=== PATIENT | female | born 1940 | race Two or more races ===

== ENCOUNTER 2019-03-02 00:24 | Inpatient (IN) | payer OTHER ==
[2019-03-02] VITALS (75 sets, daily range): BP systolic 62–141; BP diastolic 30–89
[~2019-03-02] VITALS: Ht 157.5 cm; Wt 59.0 kg
--- NOTE | 2019-03-02 00:48 | NUR ---
PT JOVAN FROM [employer] FOR ABD PAIN X2DAYS. AFEBRILE. PT APPEARS UNCOMFORTABLE, VSS, PLACED ON CONTINIOUS MONITORING AND PULSE OX, WILL CONTINUE TO COMITOR. SKIN WARM AND INTACT. FAMILY AT BEDSIDE.
[2019-03-02] MEDS ORDERED: ONDANSETRON HCL/PF 4 MG/2 ML VIAL ONE (00:57)
[2019-03-02] MEDS ORDERED: MORPHINE SULFATE INJ 4 MG/ML DISP.SYRIN ONE (00:57)
[2019-03-02] MEDS ORDERED: MORPHINE SULFATE INJ 2 MG/ML DISP.SYRIN IV ONE (01:00)
[2019-03-02] MEDS ORDERED: ONDANSETRON HCL/PF 4 MG/2 ML VIAL IVP ONE (01:00)
[2019-03-02 01:11] LABS: BASOPHILS # (AUTO) 0.1 /CMM (0.0-0.2); HEMOGLOBIN 9.4 g/dL (11.5-14.8); MEAN CORPUSCULAR HGB CONC 29 g/dl (31.0-36.0)
--- NOTE | 2019-03-02 01:23 | NUR ---
UNABLE TO CATH PT FOR URINE SAMPLE, AWARE
--- NOTE | 2019-03-02 01:24 | NUR ---
PT BROUGHT BY RADIOLOGY TO CT
[2019-03-02 01:28] LABS: ALANINE AMINOTRANSFERASE 14 U/L (12-78); ALBUMIN 2.4 g/dL (3.4-5.0); ALKALINE PHOSPHATASE 333 U/L (46-116); ASPARTATE AMINOTRANSFERASE 22 U/L (15-37); BILIRUBIN,DIRECT 0.6 mg/dL (0.0-0.2); CALCIUM, SERUM 8.4 mg/dL (8.5-10.1); CARBON DIOXIDE 25 mmol/L (21-32); CHLORIDE 103 mmol/L (98-107); CREATININE 5.2 mg/dL (0.6-1.3); GLUCOSE 115 mg/dL (74-106); LIPASE 252 U/L (73-393); SERUM AMMONIA 16 umol/L (11-32); SODIUM SERUM 137 mmol/L (136-145); TOTAL PROTEIN, SERUM 7.7 g/dL (6.4-8.2)
[2019-03-02 01:30] LABS: BASOPHILS % (AUTO) 0.7 % (0.0-2.0); EOSINOPHILS % (AUTO) 0.2 % (0.0-6.0); HEMATOCRIT 32 % (33-45); LYMPHOCYTES # (AUTO) 0.7 /CMM (0.8-4.8); LYMPHOCYTES % (AUTO) 5.6 % (20.0-44.0); MEAN CORPUSCULAR VOLUME 74 fL (82-100); MONOCYTES # (AUTO) 1.1 /CMM (0.1-1.30); NEUTROPHILS # (AUTO) 10.2 /CMM (1.8-8.9); NEUTROPHILS % (AUTO) 84.5 % (43.0-81.0); PLATELET COUNT (AUTO) 316 /CMM (150-450); RED BLOOD CELL COUNT(AUTO) 4.35 MIL/uL (4.0-5.2); WHITE BLOOD COUNT (AUTO) 12.1 K/uL (4.3-11.0)
[2019-03-02 01:33] LABS: POTASSIUM 7.6 mmol/L (3.5-5.1); UREA NITROGEN, BLOOD 107 mg/dL (7-18)
--- NOTE | 2019-03-02 01:44 | NUR ---
EAN (DAUGHTER) [phone], [place] [phone] (GRAND DAUGHTER). CALL DAUGHTER FIRST.
[2019-03-02] MEDS ORDERED: ALBUTEROL FS 2.5 MG/3 ML VIAL.NEB NEB ONE (02:00)
[2019-03-02] MEDS ORDERED: CALCIUM CHLORIDE 1,000 MG/10 ML DISP.SYRIN IV ONE (02:00)
[2019-03-02] MEDS ORDERED: SODIUM BICARBONATE SYR 50 MEQ/50 ML DISP.SYRIN IV ONE (02:00)
[2019-03-02] MEDS ORDERED: DEXTROSE 50%-WATER 50 ML DISP.SYRIN IV ONE (02:00)
[2019-03-02] MEDS ORDERED: SODIUM POLYSTYRENE SULFONATE 15 G/60 ML BOTTLE PO ONE ×3 (02:00→07:00)
[2019-03-02] MEDS ORDERED: INSULIN REGULAR, HUMAN 100 UNIT/ML 10 ML VIAL IV ONE (02:00)
--- NOTE | 2019-03-02 02:11 | NUR ---
REGAL BATTERY INSPECTOR AWARE OF PT. PAGING DR ACUNA FOR ADMISSION,
--- NOTE | 2019-03-02 02:31 | NUR ---
PRINCESS PHILLIP MILLINERY COPYIST: [phone]
[2019-03-02] MEDS ORDERED: ACET325C7 PO (02:54)
[2019-03-02] MEDS ORDERED: ASCO-492 PO (02:55)
[2019-03-02] MEDS ORDERED: ASPI-1169 PO (02:56)
[2019-03-02] MEDS ORDERED: MAGN400O6 PO (02:57)
[2019-03-02] MEDS ORDERED: FOLI1TAB16 PO (03:00)
[2019-03-02] MEDS ORDERED: INSU100V7 SQ (03:00)
[2019-03-02] MEDS ORDERED: FERR325T23 PO (03:00)
[2019-03-02] MEDS ORDERED: SUCR1ORA PO (03:02)
[2019-03-02] MEDS ORDERED: OMEP40CA13 PO (03:02)
[2019-03-02] MEDS ORDERED: SENN-168 PO (03:02)
[2019-03-02] MEDS ORDERED: TRAM50TA2 PO (03:03)
--- NOTE | 2019-03-02 03:30 | NUR ---
Chen quiñonez in EDM - 03/02/19 at 0641 by MARGOTLIPCharo PT DIFFICULT TO AROUSE, UNABLE TO SWALLOW KAYEXELATE. CHRIS CHACON AWARE. WILL ENDORSE TO VINOD RN
--- NOTE | 2019-03-02 03:30 | NUR ---
PT RESTING IN BED. AROUSABLE WITH PAINFUL STIMULI, UNABLE TO SWALLOW AT THIS TIME. UNABLE TO ADMINISTER KAYEXELATE, ER MD AWARE. PT STILL ON CONTINUOUS PULPER TENDER, WILL CONTINUE TO MONITOR.
--- NOTE | 2019-03-02 03:51 | NUR ---
GAVE REPORT TO TIFFANIE CONNORS FOR ROSY
--- NOTE | 2019-03-02 04:05 | NUR ---
Received patient from ER,while patient is being transported to the room by ER nurse ,noted patient with almost agonal breathing ,unresponsive, portable monitor showing NSR, O2 saturation 97 % but patient clearly with agonal breathing with O2 via nasal cannula EQUIPMENT OPERAT0R was called at 0410.Team responded right away.Neo Lizama at bedside Narcan 0.4 mg given and patient responded,woke up a little but still very lethargic.
[2019-03-02] MEDS ORDERED: NALOXONE HCL 0.4 MG/ML AMPUL ONE (04:14)
--- NOTE | 2019-03-02 04:15 | NUR ---
PT TRANSFERRED PER ACLS PROTOCOL
--- NOTE | 2019-03-02 04:25 | NUR ---
Called family, spoke to patient's daughter Marine ,was made aware patient is being transfered to ICU,consent obtained for Dialysis catheter , Neo Lizama further spoke to the daughter on patient's condition and plan of care.
--- NOTE | 2019-03-02 04:30 | NUR ---
Transported patient to ICU .
--- NOTE | 2019-03-02 04:40 | NUR ---
ICU NOTES RECEIVED PT VIA BED AFTER BRADDER PT WAS IN AGONAL RESPIRATIONS,PLACED ON BIPAP 22/5 40%T CONFUSED,RESTLESS.CARLOS SMITH DNP HERE IN UNIT TO INSERT HEMODIALYSIS VIA RT FEMORAL.
--- NOTE | 2019-03-02 04:44 | NUR ---
Rapid response called to rm 114-1, Stat abg taken and critical results noted. Pt transferred to ICU and placed on bipap per Dr Lizama request. Pt placed on noted settings as charted. Alarms are set and audible. Vent plugged into red outlet. Ambu bag bedside. Will continue to monitor. Addendum: 03/02/19 at 0637 by SAVANNAH BAKER RT Amended: Links added.
[2019-03-02] MEDS ORDERED: DEXTROSE 50%-WATER 50 ML DISP.SYRIN IVP ONE (05:00)
[2019-03-02] MEDS ORDERED: IV 1/2NS 1000 ML 1,000 ML IV PRN (05:30)
--- NOTE | 2019-03-02 06:24 | NUR ---
ICU NOTES ABG DONE ORDERED RESULT OF ABG'S CALLED TO CARLOS SMITH.PT INTUBATED W/FR#7 24 AT LIP LINE.FIO2 100%,A/14 TV 450 AND 5CM PEEP.CXR DONE FOR PLACEMENT
[2019-03-02 06:27] LABS: ABG BASE EXCESS -2.4 mmol/L; ABG OXYGEN SATURATION 95.8 % (92.0-98.5); ABG PCO2 77.5 mmHg (35.0-45.0); ABG PH 7.164 (7.350-7.450); ABG PO2 101.6 mmHg (75.0-100.0); AaDO2 94.5 mmHg; COHb 0.8 % (0.5-1.5); MetHb 0.6 % (0.0-1.5); O2Hb 94.5 % (94.0-97.0); PEEP,BG 5 cm H2O; SITE, ABG Right Brachial; VENT MODE, BG bipap
--- NOTE | 2019-03-02 07:20 | NUR ---
SALES UTILITY REPRESENTATIVE NOTE RECEIVED REPORT FROM PM NURSE.PATIENT AGITATED ON ETT 7.5 AND 23 AT LIP LEVEL.ON VENT TOLERATING SETTINGS ORDERED.VSS STABLE.IV ON LAC AND R FEMORAL INTACT AND PATENT.NO SOB NO DISTRESS NOTED.ON B SOFT WRIST RESTRAINT.BED IS LOCKED AND IN LOW POSITION.CALL LIGHT IN REACH.BED ALARM ON .SRX4.WILL CONTINUE TO MONITOR.
--- NOTE | 2019-03-02 07:25 | NUR ---
ICU NOTES REPORT AND CARE OF PT GIVEN TO IAIN CONNORS.
[2019-03-02] MEDS ORDERED: FEE PK DOSING 1 MIN EA MC ONE (07:47)
[2019-03-02] MEDS: PROPOFOL 100 ML IV PRN ×3 (07:49→23:59)
[2019-03-02 07:53] LABS: BASOPHILS # (AUTO) 0.1 /CMM (0.0-0.2); BASOPHILS % (AUTO) 1.2 % (0.0-2.0); EOSINOPHILS % (AUTO) 0.1 % (0.0-6.0); HEMATOCRIT 29 % (33-45); HEMOGLOBIN 8.6 g/dL (11.5-14.8); LYMPHOCYTES # (AUTO) 0.4 /CMM (0.8-4.8); LYMPHOCYTES % (AUTO) 3.7 % (20.0-44.0); MEAN CORPUSCULAR HGB CONC 29 g/dl (31.0-36.0); MEAN CORPUSCULAR VOLUME 73 fL (82-100); MONOCYTES % (AUTO) 9.3 % (2.0-12.0); NEUTROPHILS # (AUTO) 8.8 /CMM (1.8-8.9); NEUTROPHILS % (AUTO) 85.7 % (43.0-81.0); PLATELET COUNT (AUTO) 241 /CMM (150-450); WHITE BLOOD COUNT (AUTO) 10.2 K/uL (4.3-11.0)
[2019-03-02] MEDS ORDERED: IV D5/0.45 NACL 1,000 ML IV ONE (08:00)
[2019-03-02] MEDS ORDERED: PIPERACILLIN /TAZOBACTAM 2.25 G in IV D5W 50 ML IV SCH (08:00)
[2019-03-02 08:07] LABS: SERUM AMMONIA 40 umol/L (11-32)
[2019-03-02 08:11] LABS: CALCIUM, SERUM 8.7 mg/dL (8.5-10.1); CARBON DIOXIDE 24 mmol/L (21-32); CHLORIDE 105 mmol/L (98-107); CREATININE 5.5 mg/dL (0.6-1.3); GLUCOSE 126 mg/dL (74-106); LIPASE 182 U/L (73-393); MAGNESIUM 2.5 mg/dL (1.8-2.4); SODIUM SERUM 142 mmol/L (136-145)
[2019-03-02 08:14] LABS: UREA NITROGEN, BLOOD 106 mg/dL (7-18)
[2019-03-02] MEDS ORDERED: BISA10SU11 RC (08:20)
[2019-03-02] MEDS ORDERED: CHLO473M5 MM (08:20)
[2019-03-02] MEDS ORDERED: INSU100V11 SQ (08:20)
[2019-03-02] MEDS ORDERED: NA P133E RC (08:20)
[2019-03-02] MEDS ORDERED: DOCU-141 PO (08:20)
[2019-03-02] MEDS ORDERED: LACT10SO PO (08:20)
[2019-03-02] MEDS ORDERED: SPIR50TA5 PO (08:20)
[2019-03-02 08:25] LABS: ABG BASE EXCESS -1.3 mmol/L; ABG OXYGEN SATURATION 99.5 % (92.0-98.5); ABG PH 7.396 (7.350-7.450); ABG PO2 371.7 mmHg (75.0-100.0); AaDO2 302.3 mmHg; COHb 0.6 % (0.5-1.5); MetHb 0.6 % (0.0-1.5); O2Hb 98.3 % (94.0-97.0); PEEP,BG 5 cm H2O; SITE, ABG Left Brachial; VT, ABG 450 mL
[2019-03-02] MEDS ORDERED: NOREPINEPHRINE 16 MG in IV D5W 500 ML IV PRN (08:30)
[2019-03-02] MEDS ORDERED: DEXTROSE 50%-WATER 50 ML DISP.SYRIN IV PRN (08:30)
[2019-03-02] MEDS ORDERED: VANCOMYCIN 1 GM in IV D5W 250 ML IV ONE ×4 (09:00)
--- NOTE | 2019-03-02 09:51 | NUR ---
called for pt , nurse stated that pt was going to have dialysis , was advised to check with ordering md, nurse will calll back with instructions
--- NOTE | 2019-03-02 10:00 | NUR ---
VICE PRESIDENT RISK MANAGEMENT NOTE CALL MADE TO DAUGHTER,SPOKE TO HER ON PHONE.GOT VERBAL CONSENT TO DO PARACENTESIS AND PICC LINE AND THORACENTESIS.VERIFIED BY 2 RN.SEEN BY ,UPDATED ABOUT PATIENT CONDITION.GOT NEW ORDERS.SEEN BY ,UPDATED ABOUT PATIENT CONDITION OK TO CHANGE IVF TO D5 1/2 NS@60 CC/HR.HD TODAY.PATIENT BP WAS LOW STARTED ON LEVO.GETTING STABILIZED.WILL CONTINUE TO MONITOR.
[2019-03-02] MEDS ORDERED: ROCURONIUM BROMIDE 50 MG/5 ML IV ONE (10:47)
[2019-03-02] MEDS ORDERED: ETOMIDATE 2 MG/ML VIAL IV ONE (10:47)
--- NOTE | 2019-03-02 11:00 | NUR ---
SUPPORT MERCHANDISER NOTE ABDOMINAL PARACENTESIS DONE BY .3090ML OUT.SEND OUT FOR CYTOLOGY.GIVEN TO LAB WITH CYTOLOGY FORM.
[2019-03-02] MEDS: BLOOD SUGAR DIAGNOSTIC 1 EACH STRIP IN SCH ×3 (12:09→23:58)
[2019-03-02] MEDS: MEROPENEM 500 MG in IV NS 0.9% 50 ML IV SCH ×2 (13:23→21:20)
[2019-03-02 14:56] LABS: CALCIUM, SERUM 7.9 mg/dL (8.5-10.1); CARBON DIOXIDE 30 mmol/L (21-32); CHLORIDE 106 mmol/L (98-107); CREATININE 3.5 mg/dL (0.6-1.3); GLUCOSE 141 mg/dL (74-106); POTASSIUM 4.7 mmol/L (3.5-5.1); SODIUM SERUM 145 mmol/L (136-145); UREA NITROGEN, BLOOD 58 mg/dL (7-18)
--- NOTE | 2019-03-02 17:37 | NUR ---
RT END OF THE SHIFT REPORT, ASSISTED DR. CARLOS SMITH FOR ORALLY INTUBATION 78 Y OLD FEMALE @0652 AM X4 RT'S AT THE BEDSIDE. ETT # 7.5@23LIPLINE. ((( DR. SMITH NOTED PT. HAS A LOSE TOOTH ON TOP RIGHT SITE ))) @0655 PLACED ON VENT WITH NOTED SETTINGS, GOOD COLOR EXCHANGED VIA CAPNOGRAPHY. ETT SECURED AT 23 CM LIP LINE. EQUAL CHEST RISE NOTED B/S BILATERALLY FINE SUX'D FOR SMALL AMT OF WHITE THIN SECRETIONS, (SPUTUM SAMPLE COLLECTED AND SENT TO LAB.) @0830 FIO2 DECREASED TO 50% PER DR. SANTOS ORDER POST ABG TODAY. PT. TOOK TO CT AND BACK TO ROOM 259 HME, PLUSH BRUSHER DONE. PT. VENT PLUGGED INTO RED OUT LET. AMBU BAG AT BEDSIDE. PT. REMAIN STABLE WILL CONTINUE TO MONITOR. REPORT WILL PASS TO PM SHIFT. Addendum: 03/02/19 at 1746 by DUKE MONTOYA RT Amended: Links added.
--- NOTE | 2019-03-02 18:06 | NUR ---
ENVELOPE ADJUSTER NOTE KAYEXALATE NOT ADMINISTERED BECAUSE OF K BACK TO NORMAL AFTER DIALYSIS.
--- NOTE | 2019-03-02 19:19 | NUR ---
SALES CONTRACTS ANALYST CLOSING NOTE PATIENT IN BED. HAS ETT 7.5 AND 23 AT LIP LEVEL.ON VENT TOLERATING SETTINGS ORDERED.VSS STABLE.IV ON LAC AND R FEMORAL INTACT AND PATENT.PICCLINE NURSE AT BEDSIDE FOR PICCLINE INSERTION.ON LEVO AND PROPOFOL.NO SOB NO DISTRESS NOTED.ON B SOFT WRIST RESTRAINT.BED IS LOCKED AND IN LOW POSITION.CALL LIGHT IN REACH.BED ALARM ON .SRX4.FAMILY WAS AT BEDSIDE.ANSWERED ALL QUESTIONS.ENDORSED TO PM NURSE FOR ROSY.
--- NOTE | 2019-03-02 19:35 | NUR ---
BREAD DOUGH MIXER RCD PT W/ DX RENAL FAIL, RESP FAIL. PT SEDATED ON PROPOFOL @ 30 MCG/KG/MIN. CONTROLLED AFIB ON MONITOR. OG TUBE CLAMPED. SKYLA PICC LINE INSERTED BY PICC LINE NURSE. D5 1/2 NS @ 60 ML/HR. SIMV TRIAL IN AM.
[2019-03-02] MEDS ORDERED: LACTULOSE 10 G/15 ML UDC (PYXIS) NG SCH (21:00)
[2019-03-03] VITALS (84 sets, daily range): BP systolic 76–142; BP diastolic 42–81
[2019-03-03 04:50] LABS: BASOPHILS % (AUTO) 0.4 % (0.0-2.0); HEMATOCRIT 28 % (33-45); HEMOGLOBIN 8.4 g/dL (11.5-14.8); LYMPHOCYTES # (AUTO) 0.7 /CMM (0.8-4.8); LYMPHOCYTES % (AUTO) 6.4 % (20.0-44.0); MEAN CORPUSCULAR HGB CONC 30 g/dl (31.0-36.0); MEAN CORPUSCULAR VOLUME 72 fL (82-100); MONOCYTES % (AUTO) 9.8 % (2.0-12.0); NEUTROPHILS # (AUTO) 8.3 /CMM (1.8-8.9); NEUTROPHILS % (AUTO) 81.4 % (43.0-81.0); PLATELET COUNT (AUTO) 177 /CMM (150-450); RED BLOOD CELL COUNT(AUTO) 3.87 MIL/uL (4.0-5.2); WHITE BLOOD COUNT (AUTO) 10.2 K/uL (4.3-11.0)
[2019-03-03 04:57] LABS: ALANINE AMINOTRANSFERASE 9 U/L (12-78); ALBUMIN 1.8 g/dL (3.4-5.0); ALKALINE PHOSPHATASE 248 U/L (46-116); ASPARTATE AMINOTRANSFERASE 16 U/L (15-37); BILIRUBIN,TOTAL 0.8 mg/dL (0.2-1.0); CALCIUM, SERUM 7.5 mg/dL (8.5-10.1); CARBON DIOXIDE 30 mmol/L (21-32); CHLORIDE 103 mmol/L (98-107); GLUCOSE 144 mg/dL (74-106); LIPASE 75 U/L (73-393); POTASSIUM 4.7 mmol/L (3.5-5.1); SODIUM SERUM 140 mmol/L (136-145); TOTAL PROTEIN, SERUM 5.8 g/dL (6.4-8.2); UREA NITROGEN, BLOOD 63 mg/dL (7-18)
[2019-03-03 05:02] LABS: SERUM AMMONIA 49 umol/L (11-32)
[2019-03-03] MEDS: INSULIN REGULAR, HUMAN 100 UNIT/ML 3 ML VIAL SQ PRN ×3 (05:59→17:46)
[2019-03-03] MEDS: PROPOFOL 100 ML IV PRN (06:00)
[2019-03-03] MEDS: BLOOD SUGAR DIAGNOSTIC 1 EACH STRIP IN SCH ×4 (06:15→23:41)
[2019-03-03] MEDS ORDERED: IV D5/0.45 NACL 1,000 ML IV PRN (07:00)
--- NOTE | 2019-03-03 08:00 | NUR ---
ICU/RN: INITIAL NOTES,AM RECEIVED BEDSIDE REPORT FROM NIGHT NURSE. PT SEDATED AND INTUBATED, ETT 7.5 AND 23CM AT THE LIP. HD JUST STARTED. CONTROLLED A.FIB ON TELE. POST HD PT WILL BE PLACED ON SIMV FOR TRIAL. OG TUBE IN PLACE, CLAMPED. RIGHT UPPER ARM PICC LINE PATENT AND INTACT, LEVO INFUSING FOR BP SUPPORT PER PROTOCOL, PT SEDATED WITH 30MCG OF DIPRIVAN, SEDATION VACATION WILL BE DONE. RIGHT FEMORAL HD CATH IN PLACE. ALL NEEDS WILL BE ATTENDED TO, SAFETY MEASURES TAKEN, BED IN LOW POSITION, SIDE RAILS UP, CALL LIGHT WITHIN REACH. WILL CONTINUE CARE. WOUND CONSULT PENDING.
[2019-03-03] MEDS ORDERED: FUROSEMIDE 20 MG/2 ML VIAL IV ONE (08:30)
[2019-03-03] MEDS: LACTULOSE 10 G/15 ML UDC (PYXIS) NG SCH ×3 (08:50→20:33)
[2019-03-03] MEDS: MEROPENEM 500 MG in IV NS 0.9% 50 ML IV SCH ×2 (09:04→20:34)
--- NOTE | 2019-03-03 09:46 | NUR ---
ICU/RN: HD DONE. 1.5LITERS OUT. VSS, CONTINUE ON LEVO FOR BP SUPPORT.
--- NOTE | 2019-03-03 10:00 | NUR ---
ICU/RN: POST HD SEDATION VACATION STARTED. PT WILL BE WEANED TODAY
[2019-03-03] MEDS ORDERED: PROPOFOL 100 ML IV PRN (12:00)
[2019-03-03] MEDS ORDERED: NOREPINEPHRINE 16 MG in IV D5W 500 ML IV PRN (12:00)
--- NOTE | 2019-03-03 13:15 | NUR ---
ICU/RN: PT PLACED ON SIMV 4, PS 15, PEEP 5, TOLERATING WELL, NO DISTRESS.
[2019-03-03 14:22] LABS: ABG BASE EXCESS 4.1 mmol/L; ABG OXYGEN SATURATION 98.4 % (92.0-98.5); ABG PCO2 52.9 mmHg (35.0-45.0); ABG PH 7.374 (7.350-7.450); ABG PO2 149.1 mmHg (75.0-100.0); AaDO2 75.3 mmHg; COHb 0.5 % (0.5-1.5); MetHb 0.6 % (0.0-1.5); O2Hb 97.3 % (94.0-97.0); SITE, ABG Left Radial
--- NOTE | 2019-03-03 14:35 | NUR ---
ICU/RN: PT EXTUBATED. ON 5LITERS NASAL CANULA, NO DISTRESS NOTED. WILL CONTINUE TO MONITOR AND ASSESS.
--- NOTE | 2019-03-03 14:38 | NUR ---
RT PER DR SANTOS PATIENT WAS WEANED ON THE VENTILATOR AND EXTUBATED. PATIENT PLACED ON 5L N/C. WILL CONT TO MONITOR CLOSELY
[2019-03-03] MEDS: VANCOMYCIN 500 MG in IV D5W 100 ML IV PRN (15:18)
[2019-03-03] MEDS: HYDROGEL DRESSING 90 GM TUBE TP SCH (17:04)
[2019-03-03] MEDS: CLOTRIMAZOLE 1% 15 GM TUBE TP SCH (17:05)
[2019-03-03 17:07] LABS: ABG BASE EXCESS 1.9 mmol/L; ABG OXYGEN SATURATION 98.8 % (92.0-98.5); ABG PCO2 45.8 mmHg (35.0-45.0); ABG PH 7.391 (7.350-7.450); ABG PO2 239.3 mmHg (75.0-100.0); AaDO2 22.2 mmHg; COHb 0.1 % (0.5-1.5); MetHb 0.6 % (0.0-1.5); O2Hb 98.1 % (94.0-97.0); SITE, ABG Left Radial; VENT MODE, BG 6L NC
--- NOTE | 2019-03-03 19:00 | NUR ---
RECEIVED PATIENT IN NO ACUTE DISTRESS IN BED. PATIENT IS A/O X 2 AND ABLE TO MAKE HER NEEDS KNOWN. PATIENT IS ON O2 VIA NASAL CANNULA AT 5LPM AND TOLERATING WELL. PATIENT NOT COMPLAINING OF ANY SHORTNESS OF BREATH, DIFFICULTY BREATHING OR PAIN AT THIS TIME. PATIENT IS ON TELEMETRY WITH CONTROLLED AFIB ON THE MONITOR. PATIENT HAS RIGHT UPPER ARM PICC LINE THAT IS CLEAN DRY INTACT AND PATENT WITH SALINE LOCK. PATIENT HAS RIGHT FEMORAL HD CATH THAT IS CLEAN DRY AND INTACT. BED IN LOW LOCK POSITION WITH RAILS UP X 2. CALL LIGHT WITHIN REACH AND ALL SAFETY MEASURES ENSURED AND CARRIED OUT. WILL CONTINUE TO MONITOR PATIENT.
--- NOTE | 2019-03-03 19:39 | NUR ---
ICU/RN: ENDING NOTES,AM BEDSIDE REPORT ENDORSED TO NIGHT NURSE. PT ON 2LITERS 02 VIA NASAL CANULA, NO DISTRESS NOTED, RESTING COMFORTABLY. PT CONTROLLED A. FIB. ANURIC, HD DONE TODAY. ALL NEEDS ATTENDED TO, SAFETY MEASURES TAKEN, BED IN LOW POSITION, SIDE RAILS UP, CALL LIGHT WITHIN REACH. LEFT LEG WOUND DEBRIDEMENT DONE BY PEDIATRIST. POSSIBLE OR PROCEDURE THIS FRIDAY.
--- NOTE | 2019-03-03 21:00 | NUR ---
CONTACTED PATIENT'S DAUGHTER WHO IS MAKING DECISIONS FOR PATIENT AND WAS NOTIFIED THAT THEY WANTED NO CHEST COMPRESSIONS, BUT WANTED ACLS MEDICATIONS, DEFIBRILLATION, AND INTUBATION. CHARGE NURSE TG CONNORS NOTIFIED AND VERIFIED WITH FAMILY 2130- NOTIFIED DR. ACUNA OF PATIENT'S FAMILIES WISHES. RECEIVED ORDERS TO CHANGE PATIENT'S CODE STATUS TO NO CHEST COMPRESSIONS WITH ACLS MEDICATIONS, DEFIBRILLATIONS AND INTUBATION. CO-SIGNED WITH CHARGE NURSE.
[2019-03-04] VITALS (26 sets, daily range): BP systolic 87–118; BP diastolic 50–62
[2019-03-04] MEDS: LACTULOSE 10 G/15 ML UDC (PYXIS) NG SCH ×4 (02:30→20:35)
--- NOTE | 2019-03-04 02:30 | NUR ---
PATIENT REFUSED TO TAKE LACTULOSE MEDICATION. EDUCATED PATIENT ON IMPORTANCE OF TAKING MEDICATION, BUT PATIENT STILL REFUSED.
--- NOTE | 2019-03-04 02:46 | NUR ---
PATIENT REFUSED CLEANING. HAS RECREATION COUNSELOR SPEAK TO PATIENT ABOUT IMPORTANCE OF BEING CLEANED, BUT PATIENT STILL REFUSED TO BE CLEANED. WILL ATTEMPT TO CLEAN PATIENT AT A LATER TIME.
[2019-03-04 04:37] LABS: BASOPHILS % (AUTO) 0.4 % (0.0-2.0); EOSINOPHILS % (AUTO) 0.5 % (0.0-6.0); HEMATOCRIT 27 % (33-45); HEMOGLOBIN 8.1 g/dL (11.5-14.8); LYMPHOCYTES # (AUTO) 0.7 /CMM (0.8-4.8); LYMPHOCYTES % (AUTO) 6.5 % (20.0-44.0); MEAN CORPUSCULAR HGB CONC 30 g/dl (31.0-36.0); MEAN CORPUSCULAR VOLUME 73 fL (82-100); MONOCYTES # (AUTO) 1.2 /CMM (0.1-1.30); MONOCYTES % (AUTO) 11.1 % (2.0-12.0); NEUTROPHILS # (AUTO) 8.7 /CMM (1.8-8.9); NEUTROPHILS % (AUTO) 81.5 % (43.0-81.0); PLATELET COUNT (AUTO) 110 /CMM (150-450); WHITE BLOOD COUNT (AUTO) 10.7 K/uL (4.3-11.0)
[2019-03-04 04:41] LABS: CALCIUM, SERUM 7.5 mg/dL (8.5-10.1); CARBON DIOXIDE 31 mmol/L (21-32); CHLORIDE 106 mmol/L (98-107); CREATININE 3.5 mg/dL (0.6-1.3); GLUCOSE 127 mg/dL (74-106); POTASSIUM 4.7 mmol/L (3.5-5.1); SODIUM SERUM 142 mmol/L (136-145); UREA NITROGEN, BLOOD 44 mg/dL (7-18)
[2019-03-04 05:13] LABS: SERUM AMMONIA 37 umol/L (11-32)
[2019-03-04] MEDS: BLOOD SUGAR DIAGNOSTIC 1 EACH STRIP IN SCH ×4 (05:15→23:36)
[2019-03-04 06:45] LABS: LYMPHOCYTES % (MANUAL) 4 % (16-48); MONOCYTES % (MANUAL) 7 % (0-11.0); NEUTROPHILS % (MANUAL) 86 (42-76)
[2019-03-04 06:46] LABS: BAND % (MANUAL) 3 % (0.0-5.0)
--- NOTE | 2019-03-04 08:00 | NUR ---
ICU/RN INITIAL NOTES,AM RECEIVED BEDSIDE REPORT FROM NIGHT NURSE. PT ALERT, FOLLOWS COMMANDS, SOME CONFUSION NOTED. PT ON NASAL CANULA, 2 LITERS, NO DISTRESS NOTED. CONTROLLED A.FIB ON TELE. PT NPO TILL SWALLOW EVALUATION IS COMPLETE. PT ANURIC. PICC LINE PATENT AND INTACT, NO S/S OF INFECTION OR INFILTRATION NOTED. ALL NEEDS WILL BE ATTENDED TO, SAFETY MEASURES TAKEN, BED IN LOW POSITION, SIDE RAILS UP, CALL LIGHT WITHIN REACH.
--- NOTE | 2019-03-04 08:49 | NUR ---
ICU/RN: RAY REYNOLDS AT BEDSIDE TO ASSESS SACRAL WOUND. ORDERS FOR DEBRIDEMENT RECEIVED. WILL FOLLOW UP.
[2019-03-04] MEDS: CLOTRIMAZOLE 1% 15 GM TUBE TP SCH ×2 (09:03→17:34)
[2019-03-04] MEDS: HYDROGEL DRESSING 90 GM TUBE TP SCH (09:03)
[2019-03-04] MEDS: MEROPENEM 500 MG in IV NS 0.9% 50 ML IV SCH ×2 (09:04→20:36)
--- NOTE | 2019-03-04 10:16 | NUR ---
WOUND CARE CONSULT: PT FOLLOWED BY SURGICAL AND PODIATRY TEAMS. DEFER TO SURGICAL TEAMS FOR WOUND TREATMENT PLAN. RECOMMENDATIONS MADE FOR SKIN PROTECTION. DISCUSSED WITH NURSING STAFF. WILL SEE PRN. CURRENT FORREST SCORE IS 9. KLEBER ISOFLEX LOW AIRLOSS BED IN USE.
[2019-03-04] MEDS ORDERED: Z GUARD REMEDY 2 OZ OINT TP PRN (10:30)
[2019-03-04] MEDS: Z GUARD REMEDY 2 OZ OINT TP SCH (11:01)
[2019-03-04] MEDS ORDERED: ALBUMIN 25% 25 GM in PREMIX 1 EA IV PRN (15:00)
--- NOTE | 2019-03-04 17:20 | NUR ---
ICU/RN: HEMODIALYSIS DONE, 1 LITER OUT. VANCO TROUGH 19, POST HD VANCO WILL BE ADMINISTERED.
[2019-03-04] MEDS: VANCOMYCIN 500 MG in IV D5W 100 ML IV PRN (17:51)
[2019-03-04] MEDS: INSULIN REGULAR, HUMAN 100 UNIT/ML 3 ML VIAL SQ PRN ×2 (18:01→23:42)
--- NOTE | 2019-03-04 19:10 | NUR ---
ICU/RN ENDING NOTES,AM BEDSIDE REPORT ENDORSED TO NIGHT NURSE. PT ALERT, FOLLOWS COMMANDS. PT WEAK. ON NASAL CANULA 2LITERS, NO DISTRESS. CONTROLLED A.FIB ON TELE. PT TURNED AND REPOSITIONED. BED BATH GIVEN, LINENS CHANGED. ALL NEEDS ATTENDED TO, SAFETY MEASURES TAKNE, BED IN LOW POSITION, SIDE RAILS UP, CALL LIGHT WITHIN REACH. WILL CONTINUE CARE
[2019-03-05] VITALS (27 sets, daily range): BP systolic 91–115; BP diastolic 49–65
[2019-03-05] MEDS: LACTULOSE 10 G/15 ML UDC (PYXIS) NG SCH ×2 (02:41→09:47)
[2019-03-05 04:48] LABS: BASOPHILS % (AUTO) 0.2 % (0.0-2.0); EOSINOPHILS % (AUTO) 0.4 % (0.0-6.0); HEMATOCRIT 27 % (33-45); HEMOGLOBIN 7.9 g/dL (11.5-14.8); LYMPHOCYTES # (AUTO) 0.6 /CMM (0.8-4.8); LYMPHOCYTES % (AUTO) 5.5 % (20.0-44.0); MEAN CORPUSCULAR HGB CONC 30 g/dl (31.0-36.0); MEAN CORPUSCULAR VOLUME 74 fL (82-100); MONOCYTES # (AUTO) 1.1 /CMM (0.1-1.30); MONOCYTES % (AUTO) 10.3 % (2.0-12.0); NEUTROPHILS # (AUTO) 8.8 /CMM (1.8-8.9); NEUTROPHILS % (AUTO) 83.6 % (43.0-81.0); PLATELET COUNT (AUTO) 94 /CMM (150-450); RED BLOOD CELL COUNT(AUTO) 3.57 MIL/uL (4.0-5.2); WHITE BLOOD COUNT (AUTO) 10.5 K/uL (4.3-11.0)
[2019-03-05 04:58] LABS: CALCIUM, SERUM 7.7 mg/dL (8.5-10.1); CARBON DIOXIDE 30 mmol/L (21-32); CHLORIDE 106 mmol/L (98-107); CREATININE 3.2 mg/dL (0.6-1.3); GLUCOSE 155 mg/dL (74-106); POTASSIUM 4.5 mmol/L (3.5-5.1); SODIUM SERUM 142 mmol/L (136-145); UREA NITROGEN, BLOOD 33 mg/dL (7-18)
[2019-03-05 05:21] LABS: NEUTROPHILS % (MANUAL) 90 (42-76)
[2019-03-05 05:22] LABS: LYMPHOCYTES % (MANUAL) 5 % (16-48); MONOCYTES % (MANUAL) 5 % (0-11.0)
[2019-03-05] MEDS: BLOOD SUGAR DIAGNOSTIC 1 EACH STRIP IN SCH ×3 (05:28→17:17)
[2019-03-05] MEDS: INSULIN REGULAR, HUMAN 100 UNIT/ML 3 ML VIAL SQ PRN ×3 (05:33→17:26)
--- NOTE | 2019-03-05 07:10 | NUR ---
HORSER UP INITIAL NOTES Rec'd pt awake on bed, not in any distress, A/O x 1-2, Namibian speaking. No SOB while on NC/2lpm. Controlled/uncontrolled Afib on telemonitor. SKYLA PICC line, patent & intact w/ no s/s/sx of infection/infiltration noted. Has R femoral HD Cath in place. Safety precaution in place w/ bed in lowest & locked pos. Call light placed w/in reach. Will cont to monitor & attend pt needs.
--- NOTE | 2019-03-05 08:30 | NUR ---
Pt seen & examined by Dr. Booth, updated about pt condition. Okay to downgrade.
[2019-03-05] MEDS: INSULIN GLARGINE, 100 UNIT/ML CARTRIDGE SQ SCH ×2 (09:00→22:14)
--- NOTE | 2019-03-05 09:00 | NUR ---
Pt seen & examined by Dr. Orozco, updated about pt condition.
[2019-03-05] MEDS: MEROPENEM 500 MG in IV NS 0.9% 50 ML IV SCH ×2 (09:46→21:02)
[2019-03-05] MEDS: Z GUARD REMEDY 2 OZ OINT TP SCH (09:46)
[2019-03-05] MEDS: HYDROGEL DRESSING 90 GM TUBE TP SCH (09:47)
[2019-03-05] MEDS: CLOTRIMAZOLE 1% 15 GM TUBE TP SCH ×2 (09:47→17:17)
[2019-03-05] MEDS: PANTOPRAZOLE 40 MG TABLET.DR PO SCH (09:49)
[2019-03-05] MEDS: FUROSEMIDE 40 MG TABLET PO SCH (09:49)
--- NOTE | 2019-03-05 09:55 | NUR ---
Ammonia 20. Per Dr. Orozco may change Lactulose to 20gm PO TID.
--- NOTE | 2019-03-05 11:15 | NUR ---
Sacral Debridement done by Heaven BELL. Pt tolerated well.
[2019-03-05] MEDS: LACTULOSE 10 G/15 ML UDC (PYXIS) PO SCH ×2 (12:25→17:21)
[2019-03-05] MEDS: SUCRALFATE 1 G TABLET PO SCH ×3 (12:25→22:13)
--- NOTE | 2019-03-05 16:30 | NUR ---
MYSQL DEVELOPERACTIVATED SLUDGE ATTENDANT NOTES: Pt transferred to Tele 310/2 as ordered. Report given to Meliza CONNORS. Pt remains A/O x 2, not in any distress. Afib on telemonitor. SKYLA PICC line kept patent & intact w/ CDI dressing, no s/sx of infection/infiltration noted. HD Cath in place w/ CDI dressing. Wound care done prior to transfer. All belongings sent w/ pt including medications. Safety precautions kept in place. Family at bedside during transfer, aware of the room. No concerns/issues identified during transfer. Endorsed to RN for ROSY.
--- NOTE | 2019-03-05 16:35 | NUR ---
RN NOTES PT ARRIVED ONTO THE UNIT VIA HOSPITAL BED. VITALS STABLE. PT TELE MONITORED WITH AFIB
[2019-03-05] MEDS: LACTOBACILLUS RHAMNOSUS GG 1 EACH CAP.SPRINK PO SCH (17:21)
--- NOTE | 2019-03-05 18:36 | NUR ---
RN CLOSING NOTES PT AWAKE AND RESTING IN BED. PRIMARILY [place] SPEAKER. NO APPARENT S/S OF PAIN, DISTRESS OR SOB AT THIS TIME. PT WAS TRANSFERRED FROM ICU. PT EXTUBATED 03/03. PT S/P SACRAL WOUND DEBRIDEMENT TODAY. PT HAS RIGHT UPPER ARM PICC LINE AND RIGHT FEMORAL PERMACATH. PT ON 2L NASAL CANNULA. SAFETY PRECAUTIONS IN PLACE, BED IN LOWEST LOCKED POSITION, X2 SIDE RAILS UP AND CALL LIGHT WITHIN REACH. WILL ENDORSE TO PAIL TESTER NURSE FOR CONTINUITY OF CARE.
--- NOTE | 2019-03-05 19:10 | NUR ---
MARKETING SUPPORT MANAGER NOTES Received patient A/O x2, awake, on La's position on bed with O2 inhalation via NC, saturating well, no SOB/respiratory distress noted. On tele monitor with controlled A-fib noted. Patient denies any pain/discomfort at this time. Kept on bed clean, dry and comfortable. On fall precautions, call light within easy reach. Will continue to monitor accordingly.
[2019-03-06] VITALS: BP 114/77
[2019-03-06] MEDS: BLOOD SUGAR DIAGNOSTIC 1 EACH STRIP IN SCH ×5 (00:06→23:50)
[2019-03-06 04:00] VITALS: BP_SYST 117; BP_DIAS 52; BP_DIAS 57
[2019-03-06] MEDS: INSULIN REGULAR, HUMAN 100 UNIT/ML 3 ML VIAL SQ PRN ×4 (05:52→23:53)
--- NOTE | 2019-03-06 06:37 | NUR ---
ADMINISTRATIVE ASSISTANT CLOSING NOTES Patient asleep, easily awaken, on La's position on bed. On O2 inhalation via NC at 3LPM, no SOB/respiratory distress noted. On tele monitor with controlled A-Fib noted. Constantly reminded patient to keep on O2 to keep SpO2>92%, patient needs reinforcement. All due meds given as ordered, no ASE noted. Wound dressing done as ordered. All nursing needs attended. Repositioned patient q2h accordingly. SCD on R lower leg. Monitored the patient routinely and PRN. On aspiration precautions. Encouraged patient to increase VALERIE, noted very poor intake <25%. Kept on bed clean, dry and comfortable. Perineal care done routinely and PRN. On fall precautions, call light within easy reach. Endorsed to the next shift.
[2019-03-06 06:44] LABS: BASOPHILS % (AUTO) 0.2 % (0.0-2.0); EOSINOPHILS % (AUTO) 0.5 % (0.0-6.0); HEMATOCRIT 27 % (33-45); HEMOGLOBIN 7.8 g/dL (11.5-14.8); LYMPHOCYTES # (AUTO) 0.6 /CMM (0.8-4.8); MEAN CORPUSCULAR HGB CONC 29 g/dl (31.0-36.0); MEAN CORPUSCULAR VOLUME 74 fL (82-100); MONOCYTES # (AUTO) 1.4 /CMM (0.1-1.30); MONOCYTES % (AUTO) 12.1 % (2.0-12.0); NEUTROPHILS # (AUTO) 9.5 /CMM (1.8-8.9); NEUTROPHILS % (AUTO) 82.2 % (43.0-81.0); PLATELET COUNT (AUTO) 98 /CMM (150-450); RED BLOOD CELL COUNT(AUTO) 3.58 MIL/uL (4.0-5.2); WHITE BLOOD COUNT (AUTO) 11.6 K/uL (4.3-11.0)
--- NOTE | 2019-03-06 06:46 | NUR ---
ADDENDUM: HD RN AT BEDSIDE FOR PATIENT'S HD.
[2019-03-06 06:50] LABS: CALCIUM, SERUM 7.8 mg/dL (8.5-10.1); CARBON DIOXIDE 28 mmol/L (21-32); CHLORIDE 105 mmol/L (98-107); GLUCOSE 154 mg/dL (74-106); SODIUM SERUM 140 mmol/L (136-145); UREA NITROGEN, BLOOD 38 mg/dL (7-18)
[2019-03-06 07:05] LABS: SERUM AMMONIA 28 umol/L (11-32)
--- NOTE | 2019-03-06 07:30 | NUR ---
MS RN OPENING NOTES RECEIVED PT SITTING UPRIGHT IN BED. PT IS A/O X2, AFEBRILE. RESPIRATIONS ARE EVEN AND UNLABORED, NOT IN ANY ACUTE DISTRESS NOTED. PT IS CURRENTLY RECEIVING DIALYSIS AT THIS TIME, TOLERATING WELL. DENIES ANY PAIN, SOB, N/V. NO S/SX OF HYPO/HYPERGLYCEMIA NOTED. PICC LINE NOTED TO SKYLA INTACT, NO INFILTRATION NOTED. DRESSING KEPT CLEAN AND DRY. SAFETY MEASURES ARE IN PLACE. INSTRUCTED PT TO USE CALL LIGHT WHEN ASSISTANCE IS NEEDED, CALL LIGHT IS LEFT WITHIN REACH. WILL MONITOR THROUGHOUT SHIFT FOR CONTINUITY OF CARE.
[2019-03-06 08:00] VITALS: BP 97/46
[2019-03-06] MEDS: PANTOPRAZOLE 40 MG TABLET.DR PO SCH (09:05)
[2019-03-06] MEDS: FUROSEMIDE 40 MG TABLET PO SCH (09:05)
[2019-03-06] MEDS: SUCRALFATE 1 G TABLET PO SCH ×4 (09:05→21:27)
[2019-03-06] MEDS: LACTULOSE 10 G/15 ML UDC (PYXIS) PO SCH ×2 (09:05→16:32)
[2019-03-06] MEDS: LACTOBACILLUS RHAMNOSUS GG 1 EACH CAP.SPRINK PO SCH ×2 (09:05→16:32)
[2019-03-06] MEDS: Z GUARD REMEDY 2 OZ OINT TP SCH (09:06)
[2019-03-06] MEDS: CLOTRIMAZOLE 1% 15 GM TUBE TP SCH ×2 (09:06→16:40)
[2019-03-06] MEDS: DAKINS QUARTER STRENGTH (0.125%) 480 ML BOTTLE TOP SCH (09:07)
[2019-03-06] MEDS: HYDROGEL DRESSING 90 GM TUBE TP SCH (09:07)
[2019-03-06] MEDS: MEROPENEM 500 MG in IV NS 0.9% 50 ML IV SCH ×2 (09:10→20:50)
--- NOTE | 2019-03-06 09:45 | NUR ---
MS RN NOTES-- PT WAS SEEN AND EXAMINED BY DR. KALPANA Landrum/ ORDERS TO CHANGE LACTULOSE TO BID, NOTIFY VASCULAR SURGEON FOR PERMA CATH TO CHEST WALL. CHARGE NURSE MADE AWARE.
[2019-03-06] MEDS ORDERED: LACTULOSE 10 G/15 ML UDC (PYXIS) PO SCH (10:00)
[2019-03-06] MEDS ORDERED: NEPRO VAN 237 ML CAN PO PRN (13:30)
--- NOTE | 2019-03-06 13:34 | NUR ---
MS RN NOTES-- PT ABLE TO MAKE NEEDS KNOWN. NEEDS MET AND RENDERED. PT DOES NOT APPEAR TO BE IN ANY ACUTE DISTRESS NOTED. WILL CONTINUE TO MONITOR.
[2019-03-06 16:00] VITALS: BP 102/58
--- NOTE | 2019-03-06 18:28 | NUR ---
MS RN CLOSING NOTES ALL DUE MEDS GIVEN, NEEDS MET AND RENDERED. PT REMAINS A/O X2, AFEBRILE. DTR AT BEDSIDE. RESPIRATIONS ARE EVEN AND UNLABORED, NOT IN ANY ACUTE DISTRESS NOTED. NO FACIAL GRIMACING OR MOANING NOTED. PICC LINE TO SKYLA INTACT, NO INFILTRATION NOTED. DRESSING KEPT CLEAN AND DRY. SAFETY MEASURE ARE IN PLACE. REMINDED PT TO USE CALL LIGHT WHEN ASSISTANCE IS NEEDED, CALL LIGHT IS LEFT WITHIN REACH. WILL ENDORSE TO NEXT SHIFT FOR CONTINUITY OF CARE.
--- NOTE | 2019-03-06 19:40 | NUR ---
MS RN OPENING NOTES RECEIVED PATIENT FROM MORNING SHIFT, ALERT AND ORIENTED X 2 SOUTH KOREAN SPEAKING. AFEBRILE WITH NO S/S OF DISTRESS OBSERVED. BREATHING REGULAR AND UNLABORED ON OXYGEN AT 2L/MIN VIA NASAL CANNULA. RIGHT UPPER ARM PICC LINE INTACT AND PATENT, FLUSHING WITH NO BLEEDING AND S/S OF INFECTION NOTED. SEEN WITH MULTIPLE WOUNDS, DRESSING CLEAN AND INTACT. NO COMPLAINTS OF PAIN/DISCOMFORT REPORTED OF THE TIME. BED LOW AND LOCKED ON SEMI FOWLERS POSITION. CALL LIGHT IN REACH. WILL CONTINUE TO MONITOR.
[2019-03-06 20:00] VITALS: BP 103/56
[2019-03-06] MEDS: INSULIN GLARGINE, 100 UNIT/ML CARTRIDGE SQ SCH (21:34)
--- NOTE | 2019-03-07 00:05 | NUR ---
MS RN NOTES BLOOD SUGAR OF 132mg/dl, 2units GIVEN SQ. MONITORED FOR S/S OF HYPO/HYPERGLYCEMIA.
[2019-03-07 06:13] LABS: BASOPHILS % (AUTO) 0.2 % (0.0-2.0); EOSINOPHILS % (AUTO) 1.5 % (0.0-6.0); HEMATOCRIT 27 % (33-45); HEMOGLOBIN 7.9 g/dL (11.5-14.8); LYMPHOCYTES # (AUTO) 0.6 /CMM (0.8-4.8); LYMPHOCYTES % (AUTO) 6.2 % (20.0-44.0); MEAN CORPUSCULAR HGB CONC 29 g/dl (31.0-36.0); MEAN CORPUSCULAR VOLUME 75 fL (82-100); MONOCYTES # (AUTO) 1.6 /CMM (0.1-1.30); MONOCYTES % (AUTO) 15.7 % (2.0-12.0); NEUTROPHILS # (AUTO) 7.7 /CMM (1.8-8.9); NEUTROPHILS % (AUTO) 76.4 % (43.0-81.0); PLATELET COUNT (AUTO) 86 /CMM (150-450); RED BLOOD CELL COUNT(AUTO) 3.61 MIL/uL (4.0-5.2); WHITE BLOOD COUNT (AUTO) 10.1 K/uL (4.3-11.0)
[2019-03-07] MEDS: BLOOD SUGAR DIAGNOSTIC 1 EACH STRIP IN SCH ×3 (06:27→18:09)
--- NOTE | 2019-03-07 06:30 | NUR ---
MS RN NOTES BLOOD SUGAR OF 85mg/dl, NO INSULIN COVERAGE NEEDED. MONITORED FOR S/S OF HYPO/HYPERGLYCEMIA.
[2019-03-07 06:32] LABS: SERUM AMMONIA 10 umol/L (11-32)
[2019-03-07 06:33] LABS: CALCIUM, SERUM 7.8 mg/dL (8.5-10.1); CARBON DIOXIDE 29 mmol/L (21-32); CHLORIDE 106 mmol/L (98-107); CREATININE 3.7 mg/dL (0.6-1.3); GLUCOSE 96 mg/dL (74-106); SODIUM SERUM 142 mmol/L (136-145); UREA NITROGEN, BLOOD 32 mg/dL (7-18)
--- NOTE | 2019-03-07 06:43 | NUR ---
MS RN CLOSING NOTES PATIENT IN BED ALERT AND ORIENTED X 2 INDONESIAN SPEAKING. AFEBRILE WITH NO S/S OF DISTRESS OBSERVED. BREATHING REGULAR AND UNLABORED ON OXYGEN AT 2L/MIN VIA NASAL CANNULA. RIGHT UPPER ARM PICC LINE INTACT AND PATENT FLUSHING WELL WITH NO BLEEDING AND S/S OF INFECTION NOTED. ASSISTED ON FEEDING, CONSUMED 10-15% OF FOOD/FLUIDS OFFERED, NO EPISODE OF NAUSEA/VOMITING OBSERVED. WOUND TREATMENTS PROVIDED. BED LOW AND LOCKED ON SEMI FOWLERS POSITION. CALL LIGHT IN REACH. WILL ENDORSE TO MORNING SHIFT FOR ROSY.
[2019-03-07 07:07] LABS: BAND % (MANUAL) 4 % (0.0-5.0); EOSINOPHILS % (MANUAL) 1 % (0-4); LYMPHOCYTES % (MANUAL) 2 % (16-48); MONOCYTES % (MANUAL) 8 % (0-11.0); NEUTROPHILS % (MANUAL) 85 (42-76)
[2019-03-07 08:00] VITALS: BP 101/57
[2019-03-07] MEDS: PANTOPRAZOLE 40 MG TABLET.DR PO SCH (08:33)
[2019-03-07] MEDS: LACTOBACILLUS RHAMNOSUS GG 1 EACH CAP.SPRINK PO SCH ×2 (08:33→18:08)
[2019-03-07] MEDS: MEROPENEM 500 MG in IV NS 0.9% 50 ML IV SCH ×2 (08:33→20:35)
[2019-03-07] MEDS: SUCRALFATE 1 G TABLET PO SCH ×4 (08:34→22:39)
[2019-03-07] MEDS: DAKINS QUARTER STRENGTH (0.125%) 480 ML BOTTLE TOP SCH (08:34)
[2019-03-07] MEDS: FUROSEMIDE 40 MG TABLET PO SCH (08:34)
[2019-03-07] MEDS: LACTULOSE 10 G/15 ML UDC (PYXIS) PO SCH ×2 (08:34→18:08)
[2019-03-07] MEDS: CLOTRIMAZOLE 1% 15 GM TUBE TP SCH ×2 (08:37→17:00)
[2019-03-07] MEDS: Z GUARD REMEDY 2 OZ OINT TP SCH (08:38)
[2019-03-07] MEDS: HYDROGEL DRESSING 90 GM TUBE TP SCH (08:38)
--- NOTE | 2019-03-07 12:35 | NUR ---
WOUND CULTURE (L LEG) POSITIVE FOR VRE. DR. ACUNA NOTIFIED
[2019-03-07 16:00] VITALS: BP 113/68
--- NOTE | 2019-03-07 17:10 | NUR ---
per patient NPO status after midnight for PermaCath placement.
--- NOTE | 2019-03-07 18:00 | NUR ---
consent sighed by patient's daughter.
--- NOTE | 2019-03-07 19:20 | NUR ---
RN INITIAL NOTES: RECEIVED REPORT FROM ZEN CONNORS. PT IN BED, MET WITH PT'S GRAND DAUGHTER AT BED SIDE. PT ON 2L OXYGEN, NOTED TO BE MOUTH BREATHER. PT NOTED TO BE TACHYPNEIC, RR 22, PER DAUGHTER PT ATE ABOUT 25% OF MEAL, AND SHE'S TRYING TO HAVE HER DRINK THE MEDICATION BUT PT REFUSED TO FINISH THE ENTIRE MEDICATION. PT ON PUREED DIET, ASPIRATION PROTOCOL INITIATED. PT HAS SKYLA PICC LINE TLC, ALL PORTS PATENT AND FLUSHING WELL, WITH GOOD BLOOD RETURN NOTED. PT S/P PARACENTESIS ON 03/02, AND HD ON 03/06. NOTED RIGHT FEMORAL TEMP HD CATH IN PLACED WITH DRESSING C/D/I, NO ACTIVE BLEEDING NOTED. S/P SACRAL DEBRIDEMENT 03/05. BLE OFFLOADED ON PILLOWS. DISCUSSED WITH GRAND DAUGHTER ABOUT PLAN OF CARE TONIGHT AND PROCEDURES IN AM. PT FOR PERMACATH PLACEMENT, ALL CONSENT SECURED BY TERESA RN. SAFETY PRECAUTIONS FOR FALL INITIATED, CALL LIGHT IN REACH, PPE UTILIZED PT ON ISOLATION VRE WOUND LLE. WILL CONTINUE MONITORING PT.
--- NOTE | 2019-03-07 19:41 | NUR ---
PATIENT IN BED ALERT AND ORIENTED X 2 NEPALESE SPEAKING. AFEBRILE WITH NO S/S OF DISTRESS OBSERVED. BREATHING REGULAR AND UNLABORED ON OXYGEN AT 5L/MIN VIA NASAL CANNULA. RIGHT UPPER ARM PICC LINE INTACT AND PATENT FLUSHING WELL. WOUND TREATMENTS PROVIDED ORDERED . BED LOW AND LOCKED ON SEMI FOWLERS POSITION. CALL LIGHT IN REACH.NPO STATUS AFTER MIDNIGHT. WILL ENDORSE TO NEXT SHIFT FOR ROSY.
[2019-03-07 20:00] VITALS: BP 96/32
--- NOTE | 2019-03-07 20:55 | NUR ---
RN NOTES: PLACED ON CONTINUOS PULSE OX, NOTED SPO2 DROPPING TO 84%, PT MOUTH BREATHER, ON 2L OXYGEN, INCREASED TO 4.5L, SPO2 WENT UP TO 88%, PT AROUSABLE, STAT ABG ORDERED, RT AT BEDSIDE FOR BLOOD DRAW.
--- NOTE | 2019-03-07 20:58 | NUR ---
BLOOD GLUCOSE 162: BLOOD GLUCOSE CHECK PERFORMED AND RESULT OBTAINED IS 162
--- NOTE | 2019-03-07 21:29 | NUR ---
RN NOTES: UNABLE TO DRAW FOR ABG, RT LIGIA TRIED 4X, UNSUCCESSFUL. PT MORE AWAKE, SPO2 98% ON 5L, HR 118, RR 22, NOTIFIED SINTERING PRESS OPERATOR MARITA
--- NOTE | 2019-03-07 21:30 | NUR ---
rn notes: pt kept removing her oxygen and she desat to low 80's, tried putting back oxygen/nasal cannula but pt kept removing it as soon as staff leave the room.
[2019-03-07 21:36] VITALS: BP 111/59
--- NOTE | 2019-03-07 21:49 | NUR ---
rn notes: contacted dr godinez's office exchange at [phone],awaiting for call back
[2019-03-07] MEDS: INSULIN GLARGINE, 100 UNIT/ML CARTRIDGE SQ SCH ×2 (22:00→22:40)
--- NOTE | 2019-03-07 22:11 | NUR ---
rn notes: received call from dr godinez, informed md regarding pt's behavior, kept taking off oxygen, and desat low 80's. re-education provided multiple times but unsuccessful, even involved pt's daughter tamir to help with translation as pt is iraqi speaking only. per md order, place bilateral soft wrist restraint". also informed about pt poor oral intake, 25%, latest blood sugar 162, per md okay to give lantus for tonight. t/o read back, verified and carried out.
--- NOTE | 2019-03-07 22:49 | NUR ---
rn notes: family at bed side, explain about the medication , family/tamir refused for insulin stated her mother is not eating well and would like to refused for insulin tonight. also explain to family about the restraint as pt kept removing nasal cannula and desat to low 80's. per family , they are refusing for restraint. education provided. tamir spoke with her mom and explain the need for keeping oxygen. pt understand and agree.
--- NOTE | 2019-03-07 23:00 | NUR ---
RN NOTES: UNABLE TO APPLY RESTRAINT FAMILY REFUSED, STATED SHE WILL SPEAK WITH THE PT ABOUT THE IMPORTANCE ABOUT KEEPING OXYGEN. STATED SHE WILL STAY WITH THE PT FOR THE MEAN TIME, WILL MONITOR PT'S BEHAVIOR.
[2019-03-08] VITALS (8 sets, daily range): BP systolic 96–147; BP diastolic 52–84
[2019-03-08] MEDS: INSULIN REGULAR, HUMAN 100 UNIT/ML 3 ML VIAL SQ PRN (00:07)
[2019-03-08] MEDS: BLOOD SUGAR DIAGNOSTIC 1 EACH STRIP IN SCH ×5 (00:07→23:59)
--- NOTE | 2019-03-08 00:45 | NUR ---
RN NOTES: PT ABLE TO CONTRACT FOR SAFETY,NOT PULLING OR REMOVING NASAL CANNULA, SPO2 97% ON 5L, PT SLEEPING AT THIS TIME. PER CLINICAL JUDGMENT, RESTRAINT MAY BE DC. NOTIFIED EMY CHACON PER .
--- NOTE | 2019-03-08 02:01 | NUR ---
RN NOTES: PAGED MD REGARDING PT'S BEHAVIOR, PT REMOVING OXYGEN AGAIN AND PULSE OXIMETRY, SPO2 SHOWING 88%, PT HITTING STAFF, NOTIFIED MD HYDRAULIC PRESS OPERATOR DR ACUNA, PER PUT PT IN SOFT BILATERAL WRIST RESTRAINT. ORDER VERIFIED AND CARRIED OUT.
--- NOTE | 2019-03-08 02:10 | NUR ---
RN NOTES: RESTRAINT PROTOCOL INITIATED, PT ABLE TO MOVE AND WIGGLE ARMS AND HANDS, RADIAL PULSE PALPABLE AND INTACT, WITH GOOD CAPILLARY REFILL NOTED, WILL CONTINUE MONITORING PT.
--- NOTE | 2019-03-08 02:22 | NUR ---
RN NOTES: NOTIFIED MARINE, PT'S FAMILY ABOUT PT'S BEHAVIOR, AGREE WITH RESTRAINT
[2019-03-08 06:17] LABS: BASOPHILS % (AUTO) 0.2 % (0.0-2.0); EOSINOPHILS % (AUTO) 0.8 % (0.0-6.0); HEMATOCRIT 26 % (33-45); HEMOGLOBIN 7.8 g/dL (11.5-14.8); LYMPHOCYTES # (AUTO) 0.5 /CMM (0.8-4.8); LYMPHOCYTES % (AUTO) 4.9 % (20.0-44.0); MEAN CORPUSCULAR HGB CONC 30 g/dl (31.0-36.0); MEAN CORPUSCULAR VOLUME 74 fL (82-100); MONOCYTES # (AUTO) 1.3 /CMM (0.1-1.30); MONOCYTES % (AUTO) 13.6 % (2.0-12.0); NEUTROPHILS # (AUTO) 7.5 /CMM (1.8-8.9); NEUTROPHILS % (AUTO) 80.5 % (43.0-81.0); PLATELET COUNT (AUTO) 104 /CMM (150-450); RED BLOOD CELL COUNT(AUTO) 3.55 MIL/uL (4.0-5.2); WHITE BLOOD COUNT (AUTO) 9.3 K/uL (4.3-11.0)
[2019-03-08 06:41] LABS: CALCIUM, SERUM 7.8 mg/dL (8.5-10.1); CARBON DIOXIDE 27 mmol/L (21-32); CHLORIDE 105 mmol/L (98-107); CREATININE 4.5 mg/dL (0.6-1.3); GLUCOSE 142 mg/dL (74-106); PHOSPHORUS 5.5 mg/dL (2.5-4.9); POTASSIUM 5.2 mmol/L (3.5-5.1); SODIUM SERUM 140 mmol/L (136-145); UREA NITROGEN, BLOOD 39 mg/dL (7-18)
--- NOTE | 2019-03-08 06:42 | NUR ---
rn notes: pt remains on 5l oxygen via nc, remain to be mouth breather, on continuous pulse ox, spo2 98%, hr 100. Bilateral soft wrist restraint remains in placed, restraint protocol followed, pt able to move and wiggle arms, with good capillary refill noted, radial pulses intact and palpable, no s/s of impediment in circulation noted. Pt on npo, for permacath placement at 1300, consent and checklist ready. Ble kept offloaded on pillows. Lilliana picc line remains in placed, patent and flushing well, on h;. vs remains stable, needs attended. Safety precautions for fall remains engaged, call light in reach, will endorse to day rn for continuity of care.
[2019-03-08] MEDS: SUCRALFATE 1 G TABLET PO SCH ×4 (07:30→21:33)
[2019-03-08] MEDS: PANTOPRAZOLE 40 MG TABLET.DR PO SCH (07:30)
--- NOTE | 2019-03-08 07:47 | NUR ---
MS RN OPENING NOTE PATIENT RECEIVED A/O X1. RESTRAINTS RELEASED AT THIS TIME PATIENT IS SLEEPING AND NOT REMOVING OXYGEN. ALL DRESSINGS DRY AND INTACT. BOTH HEELS ELEVATED ON PILLOWS TO PREVENT FURTHER SKIN BREAKDOWN. SCD ON RIGHT LEG ONLY DUE TO DRESSING ON LEFT LOWER LEG. NPO AT THIS TIME FOR SURGERY AT [address] SEAMAN FOR PERM CATH PLACEMENT. BED IN LOWEST SETTING. SIDE RAILS X3 IN UPRIGHT POSITION. CALL LIGHT WITHIN REACH. WILL CONTINUE TO MONITOR TO ENSURE SAFETY.
[2019-03-08] MEDS: LACTOBACILLUS RHAMNOSUS GG 1 EACH CAP.SPRINK PO SCH ×2 (09:00→16:50)
[2019-03-08] MEDS: FUROSEMIDE 40 MG TABLET PO SCH (09:00)
[2019-03-08] MEDS: CLOTRIMAZOLE 1% 15 GM TUBE TP SCH ×2 (09:00→16:52)
[2019-03-08] MEDS: LACTULOSE 10 G/15 ML UDC (PYXIS) PO SCH ×2 (09:00→16:50)
[2019-03-08] MEDS: MEROPENEM 500 MG in IV NS 0.9% 50 ML IV SCH ×2 (09:09→20:58)
[2019-03-08] MEDS: HYDROGEL DRESSING 90 GM TUBE TP SCH (09:10)
[2019-03-08] MEDS: DAKINS QUARTER STRENGTH (0.125%) 480 ML BOTTLE TOP SCH (09:10)
[2019-03-08] MEDS: Z GUARD REMEDY 2 OZ OINT TP SCH (09:10)
--- NOTE | 2019-03-08 09:34 | NUR ---
MS/RN Medications held Oral medications held due to patient being NPO for surgery later this afternoon.
[2019-03-08] MEDS ORDERED: FENTANYL PF 100MCG/2ML AMPUL ONE (09:54)
[2019-03-08] MEDS ORDERED: LEVO750T21 PO (11:07)
[2019-03-08] MEDS ORDERED: SULF1TAB48 PO (11:10)
[2019-03-08] MEDS ORDERED: CARV3.12 PO (12:36)
[2019-03-08] MEDS ORDERED: FAMOTIDINE/PF INJ 20 MG/2 ML VIAL IV ONE (12:45)
--- NOTE | 2019-03-08 12:51 | NUR ---
MS CONNORS BLOOD SUGAR BLOOD SUGAR AT NOON 108. PER HOSPITAL PROTOCOL, NO COVERAGE AT THIS TIME.
[2019-03-08] MEDS ORDERED: LIDOCAINE HCL/MPF 1% 30 ML VIAL IJ ONE (14:02)
[2019-03-08] MEDS ORDERED: HEPARIN SODIUM, PORCINE 1,000 UNIT/ML VIAL ONE (14:02)
--- NOTE | 2019-03-08 14:31 | NUR ---
MS RN OR PATIENT TAKEN TO OR IN STABLE CONDITION. MEDICAL RECORD TAKEN WITH PATIENT. DAUGHTER REQUESTING TO SPEAK WITH ANESTHESIA ESCORTED TO OR.
--- NOTE | 2019-03-08 16:47 | NUR ---
RN BACK FROM OR PATIENT RECEIVED BACK FROM OR S/P PERM CATH INSERTION. INSERTION SITE CLEAN AND DRY. DRESSING REMAINS DRY AND INTACT. VITAL SIGNS TAKEN PER HOSPITAL PROTOCOL. NO SIGNS OF RESPIRATORY DISTRESS, PAIN OR DISCOMFORT. FEMORAL LINE TO RIGHT GROIN REMOVED DURING SURGERY. PRESSURE DRESSING DRY AND INTACT. WILL CONTINUE TO MONITOR.
--- NOTE | 2019-03-08 16:52 | NUR ---
MS RN MEDICATIONS HELD PATIENT TOO LETHARGIC FOLLOWING ANESTHESIA TO RECEIVE 5PM MEDICATIONS.
--- NOTE | 2019-03-08 18:37 | NUR ---
MS RN CLOSING NOTES ALL MEDS HELD DUE TO PATIENT LETHARGIC AFTER PERMACATH PROCEDURE. PATIENT REMAINS A/OX1. RESPIRATIONS ARE EVEN AND UNLABORED, NO SIGNS OF RESPIRATORY DISTRESS. PICC LINE ON RIGHT UPPER ARM HEP LOCK, INTACT, NO INFILTRATION NOTED. DRESSING ON LEFT LOWER LEG CLEAN AND DRY. PATIENT CURRENTLY ON HEMODIALYSIS STARTED AT 1810. VITAL SIGNS STABLE. BED IS IN LOWEST POSITION. SIDE RAILS X2 HEAD UPRIGHT. CALL LIGHT WITHIN REACH. WILL ENDORSE TO NEXT SHIFT FOR CONTINUITY OF CARE.
--- NOTE | 2019-03-08 19:40 | NUR ---
MS RN OPENING NOTES RECEIVED PATIENT FROM MORNING SHIFT, ALERT AND ORIENTED X1 HUNGARIAN SPEAKING. APPEARS PALE AND WEAK. BREATHING REGULAR AND UNLABORED ON OXYGEN AT 3.5L/min VIA NASAL CANNULA. ON ON-GOING DIALYSIS, RIGHT CHEST PERMACATH IN USED WITH NO BLEEDING, CLEAN DRESSING INTACT. RIGHT UPPER ARM PICC LINE INTACT AND PATENT FLUSHING WELL WITH NO BLEEDING OR S/S OF INFECTION NOTED. VITAL SIGNS TAKEN WITH LATEST BP 96/57 HR 111 RR 18 TEMP 97.3 SPO2 99%. NO S/S OF PAIN/DISCOMFORT NOTED. BED LOW AND LOCKED ON SEMI FOWLERS POSITION. WILL CONTINUE TO MONITOR.
[2019-03-08] MEDS: CARVEDILOL 3.125 MG TABLET PO SCH (20:50)
--- NOTE | 2019-03-08 21:30 | NUR ---
MS RN NOTES S/P HEMODIALYSIS 500ML OUTPUT. BP 104/54 HR 111 RR 20 Temp 97.3 SPO2 99%. RIGHT CHEST PERMACATH INTACT WITH CLEAN DRESSING, NO ACTIVE BLEEDING NOTED. WILL CONTINUE TO MONITOR.
[2019-03-08] MEDS: INSULIN GLARGINE, 100 UNIT/ML CARTRIDGE SQ SCH (21:57)
--- NOTE | 2019-03-09 | NUR ---
MS RN NOTES FOUND PATIENT PULLING HER NEWLY INSERTED RIGHT CHEST PERMACATH AND OXYGEN. NOTED WITH EPISODE OF DESATURATION WHENEVER NASAL CANNULA IS OFF. PUT BACK ON BILATERAL SOFT WRIST RESTRAINTS. WILL CLOSELY MONITOR.
--- NOTE | 2019-03-09 00:06 | NUR ---
MS RN NOTES BS 110mg/dl, NO INSULIN COVERAGE NEEDED. MONITORED FOR S/S OF HYPO/HYPERGLYCEMIA.
[2019-03-09] MEDS: VANCOMYCIN 500 MG in IV D5W 100 ML IV PRN (02:38)
[2019-03-09] MEDS: BLOOD SUGAR DIAGNOSTIC 1 EACH STRIP IN SCH ×3 (05:44→17:54)
--- NOTE | 2019-03-09 06:19 | NUR ---
MS RN NOTES BS 95mg/dl, NO INSULIN COVERAGE NEEDED. MONITORED FOR S/S OF HYPO/HYPERGLYCEMIA.
--- NOTE | 2019-03-09 06:22 | NUR ---
MS RN CLOSING NOTES PATIENT IN BED ALERT AND ORIENTED X1 SYRIAC SPEAKING. BREATHING REGULAR AND UNLABORED ON OXYGEN AT 3.5L/min VIA NASAL CANNULA WITH LATEST SPO2 99%. RIGHT CHEST PERMACATH INTACT AND PATENT WITH CLEAN DRESSING. RIGHT UPPER ARM PICC LINE INTACT AND PATENT FLUSHING WELL WITH NO BLEEDING OR S/S OF INFECTION NOTED. MAINTAINED ON BILATERAL SOFT WRIST RESTRAINTS PATIENT STILL HAS EPISODES OF AGITATION AND PULLING HER NEWLY INSERTED PERMACATH AND REMOVING HER NASAL CANNULA CAUSING DESATURATION. WOUND TREATMENTS PROVIDED. NO S/S OF PAIN/DISCOMFORT SEEN WITHIN THE SHIFT. BED LOW AND LOCKED ON SEMI FOWLERS POSITION. WILL ENDORSE TO MORNING SHIFT FOR ROSY.
--- NOTE | 2019-03-09 07:30 | NUR ---
MS/RN Patient received Patient received from night stocker. A/O 1, vital signs within normal limits. Continuous pulse ox in place, saturation on 3l 100%. Remains with bilateral soft wrist restraints as continues to pull at HD catheter and remove oxygen. Dressings dry and intact, no oozing noted. Side rails X3 in upright position, bed in low setting. Will continue to monitor and ensure safety.
[2019-03-09 08:00] VITALS: BP 106/65
[2019-03-09] MEDS: SUCRALFATE 1 G TABLET PO SCH ×4 (08:27→21:24)
[2019-03-09] MEDS: LACTULOSE 10 G/15 ML UDC (PYXIS) PO SCH ×2 (08:27→16:30)
[2019-03-09] MEDS: LACTOBACILLUS RHAMNOSUS GG 1 EACH CAP.SPRINK PO SCH ×2 (08:27→16:30)
[2019-03-09] MEDS: CARVEDILOL 3.125 MG TABLET PO SCH (08:28)
[2019-03-09] MEDS: MEROPENEM 500 MG in IV NS 0.9% 50 ML IV SCH (08:28)
[2019-03-09] MEDS: PANTOPRAZOLE 40 MG TABLET.DR PO SCH (08:28)
[2019-03-09] MEDS: CLOTRIMAZOLE 1% 15 GM TUBE TP SCH ×2 (08:31→16:30)
[2019-03-09] MEDS: Z GUARD REMEDY 2 OZ OINT TP SCH (08:31)
[2019-03-09] MEDS: DAKINS QUARTER STRENGTH (0.125%) 480 ML BOTTLE TOP SCH (08:31)
[2019-03-09] MEDS: HYDROGEL DRESSING 90 GM TUBE TP SCH (08:31)
[2019-03-09] MEDS ORDERED: LEVOFLOXACIN (250MG) 250 MG TABLET PO SCH (09:00)
[2019-03-09] MEDS ORDERED: METOPROLOL SUCCINATE 25 MG TAB.SR.24H PO SCH (09:00)
--- NOTE | 2019-03-09 09:00 | NUR ---
MS/RN Medications Morning medications administered, crushed with apple sauce.
--- NOTE | 2019-03-09 09:15 | NUR ---
MS/RN S/B Dr Orozco Seen by Dr Orozco - family spoken to at length regarding pending discharge. Waiting for outpatient HDX to be arranged.
[2019-03-09] MEDS: LINEZOLID 600 MG TABLET PO SCH ×2 (09:39→21:24)
[2019-03-09] MEDS ORDERED: LEVOFLOXACIN (500MG) 500 MG TABLET PO SCH (10:00)
--- NOTE | 2019-03-09 12:38 | NUR ---
MS/ RN Blood Sugar Blood Sugar @ 1200 164 Insulin non administered due to pt not eating.
--- NOTE | 2019-03-09 15:00 | NUR ---
MS/RN Pictures Discharge photos taken and placed in chart. All wound care carried out as per order.
--- NOTE | 2019-03-09 15:15 | NUR ---
MS/aerotriangulation specialist Informed by charge nurse that transport would be picking up patient at 1745.
[2019-03-09 16:00] VITALS: BP 96/55
--- NOTE | 2019-03-09 16:00 | NUR ---
MS/RN Report Report called to Melani at [facility].
--- NOTE | 2019-03-09 16:20 | NUR ---
MS/RN New placement Received call from Coco (caseworker intake) stating that [facility] facility to be changed as [facility] do not have an isolation room at this time. Stated patient would now be going to [facility]. Also stated that family were aware of change of plans and are in agreement.
--- NOTE | 2019-03-09 17:00 | NUR ---
MS/RN Orders Call received from Dr Valencia - low air loss mattress to be ordered to enable new senior living facility to order mattress.
--- NOTE | 2019-03-09 18:12 | NUR ---
MS/RN Blood sugar Blood sugar at 1730 159, insulin non administered as patient not eating.
--- NOTE | 2019-03-09 19:20 | NUR ---
MS RN OPENING NOTES Received patient A/O x2, awake on La's position on bed. With O2 inhalation via NC @ 3.5 LPM, saturating well. With occasional productive cough, patient has difficulty expectorating. On aspiration precautions. No s/s of discomfort noted at this time. Kept on bed clean, dry and comfortable. Call light within easy reach. On fall precautions. Will continue to monitor accordingly.
[2019-03-09 20:00] VITALS: BP 86/43
[2019-03-09] MEDS: INSULIN GLARGINE, 100 UNIT/ML CARTRIDGE SQ SCH (21:48)
--- NOTE | 2019-03-09 22:47 | NUR ---
MS RN NOTES CN called [facility], bed not available at this time. Discharge pending, possible tomorrow.
[2019-03-10] MEDS: BLOOD SUGAR DIAGNOSTIC 1 EACH STRIP IN SCH ×4 (00:42→18:00)
--- NOTE | 2019-03-10 01:00 | NUR ---
MS RN NOTES Patient refused insulin injection at this time. BS - 175. Encouraged patient to take insulin, discussed risks and benefits of the medication patient insisted to refuse meds. Patient noted taking minimal liquid intake, refused food/snacks offered. Will continue to monitor accordingly.
[2019-03-10] MEDS: INSULIN REGULAR, HUMAN 100 UNIT/ML 3 ML VIAL SQ PRN ×2 (02:44→06:23)
--- NOTE | 2019-03-10 06:23 | NUR ---
MS RN NOTES Patient refused insulin injection at this time. BS - 132. Encouraged patient to take insulin, discussed risks and benefits of the medication patient insisted to refuse insulin. Patient noted poor oral intake, refused food/snacks offered. Will continue to monitor accordingly.
--- NOTE | 2019-03-10 06:53 | NUR ---
MS RN CLOSING NOTES Patient intermittently asleep, easily awaken. On O2 inhalation via NC @ 3.5LPM, no SOB/respiratory distress noted. All due meds given as ordered. All nursing needs attended. Patient noted removing O2 inhalation, constantly reminded patient, monitored accordingly. Kept on bed clean, dry and comfortable. Call light within easy reach. On fall precautions. Endorsed to the next shift.
[2019-03-10 07:07] LABS: BASOPHILS % (AUTO) 0.5 % (0.0-2.0); HEMATOCRIT 27 % (33-45); HEMOGLOBIN 7.9 g/dL (11.5-14.8); LYMPHOCYTES # (AUTO) 0.6 /CMM (0.8-4.8); LYMPHOCYTES % (AUTO) 8.1 % (20.0-44.0); MEAN CORPUSCULAR HGB CONC 30 g/dl (31.0-36.0); MEAN CORPUSCULAR VOLUME 75 fL (82-100); MONOCYTES # (AUTO) 1.1 /CMM (0.1-1.30); MONOCYTES % (AUTO) 14.4 % (2.0-12.0); NEUTROPHILS # (AUTO) 5.7 /CMM (1.8-8.9); PLATELET COUNT (AUTO) 113 /CMM (150-450); RED BLOOD CELL COUNT(AUTO) 3.55 MIL/uL (4.0-5.2); WHITE BLOOD COUNT (AUTO) 7.5 K/uL (4.3-11.0)
[2019-03-10 07:26] LABS: SERUM AMMONIA 47 umol/L (11-32)
[2019-03-10 07:40] LABS: CARBON DIOXIDE 23 mmol/L (21-32); CHLORIDE 104 mmol/L (98-107); CREATININE 3.9 mg/dL (0.6-1.3); GLUCOSE 162 mg/dL (74-106); POTASSIUM 4.4 mmol/L (3.5-5.1); SODIUM SERUM 139 mmol/L (136-145); UREA NITROGEN, BLOOD 30 mg/dL (7-18)
[2019-03-10 08:00] VITALS: BP 103/54
[2019-03-10] MEDS ORDERED: IV NS 0.9% 250 ML IV ONE (08:30)
[2019-03-10] MEDS: LACTOBACILLUS RHAMNOSUS GG 1 EACH CAP.SPRINK PO SCH ×2 (08:54→17:00)
[2019-03-10] MEDS: PANTOPRAZOLE 40 MG TABLET.DR PO SCH (08:54)
[2019-03-10] MEDS: SUCRALFATE 1 G TABLET PO SCH ×3 (08:54→17:30)
[2019-03-10] MEDS: LINEZOLID 600 MG TABLET PO SCH (08:54)
[2019-03-10] MEDS: Z GUARD REMEDY 2 OZ OINT TP SCH (08:55)
[2019-03-10] MEDS: CLOTRIMAZOLE 1% 15 GM TUBE TP SCH ×2 (08:55→17:44)
[2019-03-10] MEDS: LACTULOSE 10 G/15 ML UDC (PYXIS) PO SCH ×3 (08:55→17:00)
[2019-03-10] MEDS: DAKINS QUARTER STRENGTH (0.125%) 480 ML BOTTLE TOP SCH (08:55)
[2019-03-10] MEDS: HYDROGEL DRESSING 90 GM TUBE TP SCH (08:55)
--- NOTE | 2019-03-10 09:10 | NUR ---
HD AT BEDSIDE WITH NO OUTPUT
--- NOTE | 2019-03-10 10:15 | NUR ---
DRESSING ON LEFT LOWER LEG AND LEFT AC ARIA CHANGED.WOUND TREATMENT ORDERED (SACRUM, ABD FOLD, L/R BREAST FOLDERS, PERINEAL ARIA )
[2019-03-10] MEDS: CLOTRIMAZOLE/BETAMETASONE DIPROPIONATE 15 GM TUBE TP SCH ×2 (12:09→17:45)
[2019-03-10 16:00] VITALS: BP 90/50
--- NOTE | 2019-03-10 16:00 | NUR ---
REPORT CALLED TO [facility] ( [facility])
[2019-03-10 17:08] VITALS: BP 90/50
--- NOTE | 2019-03-10 19:05 | NUR ---
patient cleared for D/C to SNF ([facility]). Patient awake alert and oriented x1 , Yoruba speaking only. 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 D/C instructions and education provided to daughter ; verbalized understanding. D/C papers sighed by 2 nurses including valuable form. Patient has no belongings. All needs attended , patient kept clean and dry, wound care provided as ordered.D/C pictures taken and placed to pt's chart. Midline removed with no bleeding. HD cath dressing changed in am today, clean and intact. ID wrist band removed. Patient picked up by ambulance.
[2019-03-10] MEDS ORDERED: INSULIN GLARGINE, 100 UNIT/ML CARTRIDGE SQ SCH (22:00)
== END 2019-03-10 19:00 | DRG 710 ==
LOC: ER 00:26 → TELE-TD 03:17 → ICU 04:24 → MED 03-05 16:20 → TELE 03-05 17:45 → MED 03-06 08:45
PROVIDERS: ADMIT Internal Medicine; ATTEND Internal Medicine
PROC: 0LBP0ZZ Excision of Left Lower Leg Tendon, Open Approach (ICD-10-PCS; principal; 2019-03-02)
PROC: 5A1945Z Respiratory Ventilation, 24-96 Consecutive Hours (ICD-10-PCS; principal; 2019-03-02)
PROC: 0W9G3ZZ Drainage of Peritoneal Cavity, Percutaneous Approach (ICD-10-PCS; principal; 2019-03-02)
PROC: 02HV33Z Insertion of Infusion Device into Superior Vena Cava, Percutaneous Approach (ICD-10-PCS; principal; 2019-03-02)
PROC: B548ZZA Ultrasonography of Superior Vena Cava, Guidance (ICD-10-PCS; principal; 2019-03-02)
PROC: 0BH17EZ Insertion of Endotracheal Airway into Trachea, Via Natural or Artificial Opening (ICD-10-PCS; principal; 2019-03-02)
PROC: 5A1D70Z Performance of Urinary Filtration, Intermittent, Less than 6 Hours Per Day (ICD-10-PCS; 2019-03-04)
PROC: 0JB70ZZ Excision of Back Subcutaneous Tissue and Fascia, Open Approach (ICD-10-PCS; 2019-03-05)
PROC: 0JB90ZZ Excision of Buttock Subcutaneous Tissue and Fascia, Open Approach (ICD-10-PCS; 2019-03-05)
PROC: 0JB70ZZ Excision of Back Subcutaneous Tissue and Fascia, Open Approach (ICD-10-PCS; 2019-03-08)
PROC: 0JHD3XZ Insertion of Tunneled Vascular Access Device into Right Upper Arm Subcutaneous Tissue and Fascia, Percutaneous Approach (ICD-10-PCS; 2019-03-08)
PROC: 0JB90ZZ Excision of Buttock Subcutaneous Tissue and Fascia, Open Approach (ICD-10-PCS; 2019-03-08)
PROC: B543ZZA Ultrasonography of Right Jugular Veins, Guidance (ICD-10-PCS; 2019-03-08)
PROC: 05HM33Z Insertion of Infusion Device into Right Internal Jugular Vein, Percutaneous Approach (ICD-10-PCS; 2019-03-08)
PROC: B5131ZA Fluoroscopy of Right Jugular Veins using Low Osmolar Contrast, Guidance (ICD-10-PCS; 2019-03-08)
DX: A41.9 Sepsis, unspecified organism (principal); J69.0 Pneumonitis due to inhalation of food and vomit; N17.0 Acute kidney failure with tubular necrosis; K76.7 Hepatorenal syndrome; G92 Toxic encephalopathy; J96.02 Acute respiratory failure with hypercapnia; J96.01 Acute respiratory failure with hypoxia; J90 Pleural effusion, not elsewhere classified; I13.2 Hypertensive heart and chronic kidney disease with heart failure and with stage 5 chronic kidney disease, or end stage renal disease; L89.153 Pressure ulcer of sacral region, stage 3; L89.323 Pressure ulcer of left buttock, stage 3; Z99.11 Dependence on respirator [ventilator] status; K85.90 Acute pancreatitis without necrosis or infection, unspecified; K72.90 Hepatic failure, unspecified without coma; E87.5 Hyperkalemia; K70.31 Alcoholic cirrhosis of liver with ascites; I70.248 Atherosclerosis of native arteries of left leg with ulceration of other part of lower leg; L97.829 Non-pressure chronic ulcer of other part of left lower leg with unspecified severity; R65.20 Severe sepsis without septic shock; E11.22 Type 2 diabetes mellitus with diabetic chronic kidney disease; E11.51 Type 2 diabetes mellitus with diabetic peripheral angiopathy without gangrene; J98.11 Atelectasis; D50.9 Iron deficiency anemia, unspecified; D69.6 Thrombocytopenia, unspecified; L30.4 Erythema intertrigo; F43.9 Reaction to severe stress, unspecified; M48.55XA Collapsed vertebra, not elsewhere classified, thoracolumbar region, initial encounter for fracture; L03.116 Cellulitis of left lower limb; L97.929 Non-pressure chronic ulcer of unspecified part of left lower leg with unspecified severity; N18.6 End stage renal disease; K76.6 Portal hypertension; K40.90 Unilateral inguinal hernia, without obstruction or gangrene, not specified as recurrent; Z99.2 Dependence on renal dialysis; Z79.4 Long term (current) use of insulin; Z79.01 Long term (current) use of anticoagulants; I50.23 Acute on chronic systolic (congestive) heart failure; R13.10 Dysphagia, unspecified; N81.4 Uterovaginal prolapse, unspecified; I27.20 Pulmonary hypertension, unspecified; K80.21 Calculus of gallbladder without cholecystitis with obstruction; S51.812A Laceration without foreign body of left forearm, initial encounter; X58.XXXA Exposure to other specified factors, initial encounter; Y92.9 Unspecified place or not applicable; N10 Acute pyelonephritis; I49.1 Atrial premature depolarization; D62 Acute posthemorrhagic anemia
CPT/HCPCS: 31720; 36415; 36569; 36600; 70450-TC; 71045-TC; 73590-TC; 76942-TC; 80048-TC; 80053-TC; 80076-TC; 80202-TC; 82040-TC; 82140-TC; 82803-TC; 82962-TC; 83615-TC; 83690-TC; 83735-TC; 84100-TC; 84484-TC; 85025-TC; 85610-TC; 85730-TC; 86706; 86850-TC; 87070-TC; 87081-TC; 87186-TC; 87340; 88112-TC; 88305-TC; 88312-TC; 89051-TC; 90935-TC; 92526; 92611-TC; 94002-TC; 94003-TC; 94760-TC; 94799-TC; 97112-TC; 97530-TC; 99082-TC; A4216; A6248; A6253; A6403; C1750; C1751; C1769; G0378; J1644; J1815; J1940; J2185; J2270; J2310; J2405; J2543; J3010; J3370; J3490; J7030; J7050; J7060; P9047